=== PATIENT | female | born 1990 ===

== ENCOUNTER 2024-04-05 22:30 | Emergency (ER) | payer BC ==
[2024-04-05] MEDS ORDERED: Sodium Chloride 0.9% 10 ML Syringe FLUSH PRN (23:13)
[2024-04-05] MEDS: Sodium Chloride 0.9% 1,000 ML IV SCH (23:24)
[2024-04-05] MEDS: Ondansetron 4 MG/2 ML SDV IVPUSH ONE (23:28)
[2024-04-05 23:31] LABS: HEMATOCRIT 43.6 % (37.0-47.0); HEMOGLOBIN 14.6 g/dL (11.5-16.5); MEAN CORPUSCULAR HEMOGLOBIN 30.2 pg (27.0-32.0); MEAN CORPUSCULAR HGB CONC 33.5 g/dL (31.0-35.0); MEAN PLATELET VOLUME 9.6 fL (6.0-10.0); RED BLOOD CELL COUNT 4.83 M/uL (3.80-5.80); WHITE BLOOD CELL COUNT,WBC 9.6 K/uL (4.0-11.0)
[2024-04-05] MEDS: diphenhydrAMINE 50 MG/ML SDV IVPUSH ONE (23:33)
[2024-04-05] MEDS: methylPREDNISolone Sodium Succinate 40 MG/1 ML SDV IVPUSH ONE (23:33)
[2024-04-05] MEDS: Ondansetron 4 MG/2 ML SDV ONE (23:40)
[2024-04-05 23:49] LABS: ANION GAP 10.8 mmol/L (5.0-15.0); BLOOD UREA NITROGEN,BUN 27 mg/dL (8-26); BUN/CREATININE RATIO 26.7 (6-25); CALCIUM 8.6 mg/dL (8.5-10.1); CHLORIDE,CL 103 mmol/L (98-107); CREATININE 1.01 mg/dL (0.55-1.02); EST CRCL DRUG DOSING (CG) 74.88 mL/min; ESTIMATED GFR 74 mL/min (>60); GLUCOSE RANDOM 94 mg/dL (74-100); POTASSIUM,K 3.8 mmol/L (3.5-5.1); SODIUM,NA 140 mmol/L (136-145)
[2024-04-06 00:10] LABS: INFLUENZA A NAA NEGATIVE (NEGATIVE); INFLUENZA B NAA NEGATIVE (NEGATIVE); RESPIRATORY SYNCYTIAL VIR NAA NEGATIVE (NEGATIVE)
[2024-04-06 00:12] LABS: TROPONIN I HIGH SENSITIVITY < 4.0 pg/ml (<=60.4)
[2024-04-06 00:13] LABS: CORONAVIRUS COVID-19 NAA NEGATIVE (NEGATIVE)
== END 2024-04-06 02:27 | disposition home or self-care (01) ==
LOC: LB.ED 22:30
DX: K52.9 Noninfective gastroenteritis and colitis, unspecified (principal)
CPT/HCPCS: 0241U; 36415; 80048; 84484; 85027; 85379; 93005; 93010; 96361; 96374; 96375; 99284; 99284-25; J1200; J2405; J2919; J7030